=== PATIENT | male | born 1995 | race Caucasian/White ===

== ENCOUNTER → 2019-06-21 | Day surgery (SDC) | payer BC ==
[~2019-06-21] MED LIST: Propofol 200 MG/20 ML SDV IV ONE
[2019-06-21] MEDS: Lactated Ringers 1,000 ML IV SCH (12:21)
--- NOTE | 2019-06-22 08:21 | OR ---
DATE OF OPERATION: 06/21/2019 PREOPERATIVE DIAGNOSIS: EPIGASTRIC PAIN. POSTOPERATIVE DIAGNOSIS: EPIGASTRIC PAIN. SURGEON: Jose Daniel Flores MD PROCEDURE: DIAGNOSTIC EGD WITH BIOPSIES X2, ALEX. ANESTHESIA: MAC. COMPLICATIONS: None. SPECIMEN: 1. Duodenal bulb biopsy x1. 2. Antral biopsy x1. 3. Antral ALEX. FINDINGS: 1. Full-length diagnostic EGD. 2. Mild duodenitis, duodenal bulb. 3. Antral gastritis, acute. RECOMMENDATIONS: Proton pump therapy as prior. Follow up with Pathology and CLOtest with Dr. Peralta. INDICATIONS: The patient had been having some epigastric pain after eating. Dr. Peralta sent him for a diagnostic scope. DESCRIPTION OF PROCEDURE: The patient was prepped and draped, placed in the left lateral decubitus position. A lubricated Olympus gastroscope was inserted over a bit, advanced to cricopharyngeus area, and easily intubated in the esophagus. The esophageal lining was benign in its entire course. The Z-line was crisp and sharp, around 40 cm. Maybe a minimal amount of spontaneous reflux seen, but no distal esophagitis, stricturing, ulceration, or Gilliland's changes. The scope advanced into the stomach, through the pylorus, and into the second portion of the duodenum. This was benign. The duodenal bulb had evidence of active duodenitis. No richard ulcerations or erosions. Biopsy was taken. The scope was brought back into the stomach and retroflexed. Hard to insufflate this young man's stomach, but the upper fundus and cardia appeared benign. No gross lesions were seen. Upon straightening, the rest of the fundus appeared benign. The antrum throughout its entire course had some mild active gastritis. A biopsy was taken along with a CLOtest. Air was suctioned, scope removed without complication. SHERMAN/DAVID /[id number]
== END ==
LOC: CC.SDS 11:40
PROVIDERS: ATTEND Family Medicine
DX: K29.80 Duodenitis without bleeding (principal); K29.00 Acute gastritis without bleeding; K21.9 Gastro-esophageal reflux disease without esophagitis; R25.1 Tremor, unspecified; E66.9 Obesity, unspecified; Z88.0 Allergy status to penicillin; Z79.899 Other long term (current) drug therapy; Z87.19 Personal history of other diseases of the digestive system; Z68.30 Body mass index [BMI] 30.0-30.9, adult
CPT/HCPCS: 43239; 87081; J2704; J7120